=== PATIENT | male | born 2000 | race Caucasian/White ===

== ENCOUNTER → 2025-02-14 | Outpatient (CLI) | payer OTHER, SELFPAY ==
--- OUTSIDE RECORDS SUMMARY | 2025-02-14 16:34 | XMS RPT_ITS | CCD ---
Author Organization [facility] InformFormerly [facility] Care Team Providers Care Fire Sprinkler Apparatus Inspector Name Role Phone SHALA GOETZ Unavailable Unavailable PROVIDER, UNKNOWN Unavailable Unavailable Landon Khoury Unavailable Unavailable IDALMIS GALLEGO Unavailable Unavailable PHYSICIAN, NONE Unavailable Unavailable Landon Khoury Primary Care Provider Landon Gaston MD Primary Care Provider [phone] LANDON KHOURY Primary Care Unavailable CLUTTER, BONI Attending Unavailable Medications Current Medications Medication Drug Class(es) Dates Sig (Normalized) Sig (Original) [id number] 200 actuat albuterol 0.09 mg/actuat metered dose inhaler (1 source) beta2-Adrenergic Agonist Start: 07-23-2024 End: 08-22-2024 take 2 puff(s) by inhalation every four hours as needed for wheezing albuterol HFA (PROVENTIL HFA, VENTOLIN HFA) 90 mcg/actuation inhaler Indications: Bronchopneumonia Inhale 2 puffs as instructed every 4 hours as needed for wheezing/shortness of breath. 1 each 07/23/2024 08/22/2024 Active benzonatate 100 mg oral capsule (1 source) Non-narcotic Antitussive Start: 07-23-2024 End: 07-30-2024 take 1 capsule by mouth three times daily as needed for cough benzonatate (TESSALON PERLE) 100 mg capsule Indications: Bronchopneumonia Take 1 capsule by mouth three times a day as needed for cough for up to 7 days. 21 capsule 07/23/2024 07/30/2024 Active doxycycline hyclate 100 mg oral tablet (1 source) Tetracycline-clas s Drug Start: 07-23-2024 End: 08-02-2024 take 1 tablet by mouth twice daily doxycycline (VIBRA-TABS) 100 mg tablet Indications: Bronchopneumonia Take 1 tablet by mouth two times a day for 10 days. 20 tablet 07/23/2024 08/02/2024 Active Inhalational Spacing Device (1 source) Start: 07-23-2024 End: 07-23-2024 Inhalational Spacing Device Indications: Bronchopneumonia 1 device one time only for 1 dose. 1 each 07/23/2024 07/23/2024 Active predniSONE 20 mg oral tablet (1 source) Start: 07-23-2024 End: 07-28-2024 take 1 tablet by mouth twice daily predniSONE (DELTASONE) 20 mg tablet Indications: Bronchopneumonia Take 1 tablet by mouth two times a day for 5 days. 10 tablet 07/23/2024 07/28/2024 Active Problems Active Problems Problem Classification Problem Date Documented Da te Episodic/Chronic Pneumonia (except that caused by tuberculosis or sexually transmitted disease) (2 sources) Bronchopneumonia; Translations: [Bronchopneumonia, unspecified organism] Onset: 07-23-2024 07-23-2024 Episodic Past or Other Problems Problem Classification Problem Date Documented Da te Episodic/Chronic Other connective tissue disease (2 sources) Pain in right toe(s); Translations: [Pain in right toe(s)] Onset: 12-05-2016 Episodic Results Test Name Value Interpretation Reference Range Facil dayanna WHITEon 07-23-2024 CNOV Office Visit (WSTR ) ANMOL PYLE ([id number]) 1 M Date Time Provider Department 07/23/24 4:30 PM BONI PLEITEZ [facility] During your visit today, we recorded the following information about you: Temperature Pulse Respiration Blood pressure 99 degrees 102/minute 18/minute 126/68 Weight 129.3 kg Boni Pleitez PA-C 07/23/2024 4:24 PM Signed This note was created using NoteWriter. Subjective Anmol Pyle is a 23 year old male. Patient is a 23-year-old male who complains of worsening fever, wheezing and productive cough that he has been experiencing for the past 4 days. Patient denies congestion, sinus pressure, ear pain or sore throat. Patient has a childhood history of asthma but states he has not experienced any episodes of wheezing in approximately 15 years. Patient does not have a current albuterol MDI. Patient does not smoke. Review of Systems Constitutional: Positive for fever. Respiratory: Positive for cough, shortness of breath and wheezing. All other systems reviewed and are negative. Objective BP 126/68 Pulse 102 Temp 37.2 ?C (99 ?F) Resp 18 Wt 129.3 kg (285 lb 0.9 oz) SpO2 97% Physical Exam Vitals and nursing note reviewed. Constitutional: Appearance: Normal appearance. He is normal weight. HENT: Head: Normocephalic and atraumatic. Right Ear: Tympanic membrane, ear canal and external ear normal. Left Ear: Tympanic membrane, ear canal and external ear normal. Nose: Nose normal. Mouth/Throat: Mouth: Mucous membranes are moist. Pharynx: Oropharynx is clear. Eyes: Extraocular Movements: Extraocular movements intact. Conjunctiva/sclera: Conjunctivae normal. Pupils: Pupils are equal, round, and reactive to light. Cardiovascular: Rate and Rhythm: Normal rate and regular rhythm. Pulses: Normal pulses. Heart sounds: Normal heart sounds. Pulmonary: Effort: Pulmonary effort is normal. Breath sounds: Wheezing and rhonchi present. Musculoskeletal: Cervical back: Normal range of motion and neck supple. Skin: General: Skin is warm and dry. Capillary Refill: Capillary refill takes less than 2 seconds. Neurological: General: No focal deficit present. Mental Status: He is alert and oriented to person, place, and time. Psychiatric: Mood and Affect: Mood normal. Behavior: Behavior normal. Thought Content: Thought content normal. Judgment: Judgment normal. Assessment and Plan Physical exam findings as noted above. Patient was provided with prescriptions for doxycycline 100 mg, prednisone 20 mg, Tessalon 100 mg and an albuterol MDI. Patient was very clearly instructed to report to an emergency department if he notes any acute worsening of his symptoms. Additional supportive care was discussed and the patient verbalizes excellent understanding of same. CLINICAL IMPRESSION: Bronchopneumonia ASSESSMENT/PLAN: 1. Bronchopneumonia - ICD9: 485, ICD10: J18.0 - DOXYCYCLINE HYCLATE 100 MG TABLET - PREDNISONE 20 MG TABLET - BENZONATATE 100 MG CAPSULE - ALBUTEROL SULFATE HFA 90 MCG/ACTUATION AEROSOL INHALER - INHALATIONAL SPACING DEVICE MDM Risk of Complications, Morbidity, and/or Mortality Presenting problems: low Diagnostic procedures: low Management options: cyndi Pleitez PA-C Allergies As of Date: 07/23/2024 (No Known Allergies) Date Reviewed: 07/23/2024 Reviewed by: Poonam Hubbard MA - Fully Assessed Reason for Visit: Chest Congestion [236] Cmt: cough, sob, fever x 4 days Primary Visit Diagnosis:Bronchopneum onia [J18.0] Order(s):doxycycline (VIBRA-TABS) 100 mg tabletTake 1 tablet by mouth two times a day for 10 days.Disp: 20 tabletRfl: 0 predniSONE (DELTASONE) 20 mg tabletTake 1 tablet by mouth two times a day for 5 days.Disp: 10 tabletRfl: 0 benzonatate (TESSALON PERLE) 100 mg capsuleTake 1 capsule by mouth three times a day as needed for cough for up to 7 days.Disp: 21 capsuleRfl: 0 albuterol HFA (PROVENTIL HFA, VENTOLIN HFA) 90 mcg/actuation inhalerInhale 2 puffs as instructed every 4 hours as needed for wheezing/shortness of breath.Disp: 1 eachRfl: 0 Inhalational Spacing Device1 device one time only for 1 dose.Disp: 1 eachRfl: 0 Prescriptions as of 07/23/2024 - doxycycline (VIBRA-TABS) 100 mg tablet Take 1 tablet by mouth two times a day for 10 days. - predniSONE (DELTASONE) 20 mg tablet Take 1 tablet by mouth two times a day for 5 days. - benzonatate (TESSALON PERLE) 100 mg capsule Take 1 capsule by mouth three times a day as needed for cough for up to 7 days. - albuterol HFA (PROVENTIL HFA, VENTOLIN HFA) 90 mcg/actuation inhaler Inhale 2 puffs as instructed every 4 hours as needed for wheezing/shortness of breath. - Inhalational Spacing Device 1 device one time only for 1 dose. Problem List As Of Date: 07/23/2024 (None) Prescriptions ordered this encounter Disp Refills Start End DOXYCYCLIN (more content not included)... Normal [facility] CR Foot Complete 3+ Views Mar barrow 06-04-2020 CR Foot Complete 3+ Views Right [facility]: [id number] ACCESSION EXAM DATE/TIME PROCEDURE ORDERING PROVIDER [id number] 06/04/2020 14:06 EDT CR Foot Complete 3+ DUONG, TARA Views Right CPT code 61527 Reason For Exam (CR Foot Complete 3+ Views Right) injury Report Right foot Clinical indication: Injury with pain fifth metatarsal area, bruising and swelling Comparison: 12/05/2016 AP, oblique and lateral views were obtained. No fracture or dislocation is noted. Joint spaces appear intact. IMPRESSION: No acute osseous abnormality is noted. Report Dictated on Final Dictating Physician: MD DE DIOS DIANE Signed Date and Time: 06/04/2020 2:15 pm Signed by: MD DE DIOS DIANE Transcribed Date and Time: 06/04/2020 2:16 Normal [facility] XR FOOT RIGHT (MIN 3 VIEWS)o n 06-04-2020 [id number]iology ACCESSION EXAM DATE/TIME PROCEDURE ORDERING PROVIDER [id number] 06/04/2020 14:06 EDT CR Foot Complete 3+ DUONG, TARA Views Right CPT code 41985 Reason For Exam (CR Foot Complete 3+ Views Right) injury Report Right foot Clinical indication: Injury with pain fifth metatarsal area, bruising and swelling Comparison: 12/05/2016 AP, oblique and lateral views were obtained. No fracture or dislocation is noted. Joint spaces appear intact. IMPRESSION: No acute osseous abnormality is noted. Report Dictated on --- Final --- Dictating Physician: MD DE DIOS DIANE Signed Date and Time: 06/04/2020 2:15 pm Signed by: MD DE DIOS DIANE Transcribed Date and Time: 06/04/2020 2:16 [facility] Work Phone: [place], [facility] Incoming Radiology Results From [facility] - 06/04/2020 2:17 PM EDT Patient Name: ANMOL PYLE [facility]#: [id number] Diagnostic Radiology ACCESSION EXAM DATE/TIME PROCEDURE ORDERING PROVIDER [id number] 06/04/2020 14:06 EDT CR Foot Complete 3+ DUONG, TARA Views Right CPT code 35947 Reason For Exam (CR Foot Complete 3+ Views Right) injury Report Right foot Clinical indication: Injury with pain fifth metatarsal area, bruising and swelling Comparison: 12/05/2016 AP, oblique and lateral views were obtained. No fracture or dislocation is noted. Joint spaces appear intact. IMPRESSION: No acute osseous abnormality is noted. Report Dictated on --- Final --- Dictating Physician: MD DE DIOS DIANE Signed Date and Time: 06/04/2020 2:15 pm Signed by: MD DE DIOS DIANE Transcribed Date and Time: 06/04/2020 2:16 [facility] Work Phone: CR Foot Complete 3+ Views [facility] 12-05-2016 CR Foot Complete 3+ Views Right Patient Name: ANMOL PYLE Diagnostic Radiology Exam Date/Time 12/05/2016 16:47:00 EDT Exam CR Foot Complete 3+ Views Right Ordering Physician ALBERT GOETZ ANDREA Accession Number [id number] CPT4 Codes 05715 () Reason For Exam Pain right toe(s) M79.674 Report Three views of the right foot, December 05, 2016. Reason for examination: Right foot pain. Injury. Pain primarily in the region of the first digit. COMPARISON: None available. FINDINGS: No fracture or dislocation is identified. Bony alignment and joint spaces are within normal limits. No destructive or erosive osseous process is noted. Bone mineralization is normal. IMPRESSION: No acute osseous abnormality. Report Dictated on Final Dictated: 12/05/2016 4:53 pm Dictating Physician: MD HENDRICKS JOE M Signed Date and Time: 12/05/2016 4:55 pm Signed by: MD ELADIO, MARY Wiley Transcribed Date and Time: 12/05/2016 4:53 Normal [facility] Emergency Room Note on 11-27-2016 [place] [facility] Note Normal [facility] [place] Patient Summary Documentson 11-27-2016 Patient Summary Documents Normal [facility] XR ANKLE MINIMUM 3 VIEWS RIG HTon 11-27-2016 XR ANKLE MINIMUM 3 VIEWS RIGHT ORIGINALXR ANKLE MINIMUM 3 VIEWS RIGHT CLINICAL STATEMENT: pain COMPARISON: None FINDINGS: No acute fracture or dislocation is identified. The ankle mortise and talar dome are normal. The joint spaces are maintained. There is no radiopaque foreign body. IMPRESSION: No acute fracture or dislocation. Interpreted By: Tara Steiner MDPreliminary Report By: Tara Steiner MDElectronically Signed By: Tara Steiner MD Dictated Date: 11/27/2016 8:42:48 AM Prelim Date: 11/27/2016 8:42:48 AM Sign Date: 11/27/2016 8:43:37 AM Normal [facility] [place] XR FOOT MINIMUM 3 VIEWS RIG Ton 11-27-2016 XR FOOT MINIMUM 3 VIEWS RIGHT ORIGINALXR FOOT MINIMUM 3 VIEWS RIGHT CLINICAL STATEMENT: pain COMPARISON: None FINDINGS: No acute fracture or dislocation is identified. The joint spaces are maintained. There is no radiopaque foreign body. IMPRESSION: No acute fracture or dislocation. Interpreted By: Tara Steinerreliminary Report By: Tara Steiner MDElectronically Signed By: Tara Steiner MD Dictated Date: 11/27/2016 8:41:49 AM Prelim Date: 11/27/2016 8:41:49 AM Sign Date: 11/27/2016 8:42:38 AM Normal [facility] [place] Vital Signs Date Time Vital Sign Value Performing Clinician Jeramy cr 07-23-2024 16:12-0400 Body temperature 99 [degF] Boni NGUYEN-Alison Work Phone: [facility] 07-23-2024 16:12-0400 Body weight 129.3 kg Boni Pleitez PA-Alison Work Phone: [facility] 07-23-2024 16:12-0400 Diastolic blood pressure 68 mm[Hg] Boni Clutter PA-C Work Phone: [facility] 07-23-2024 16:12-0400 Heart rate 102 /min Boni Clutter PA-C Work Phone: [facility] 07-23-2024 16:12-0400 Respiratory rate 18 /min Boni Clutter PA-C Work Phone: [facility] 07-23-2024 16:12-0400 SaO2% (BldA) [Mass fraction] 97 % Boni Clutter PA-C Work Phone: [facility] 07-23-2024 16:12-0400 Systolic blood pressure 126 mm[Hg] Boni Clutter PA-C Work Phone: [facility] Encounters Encounter Date Encounter Type Care Provider Facility Start: 07-23-2024 End: 07-23-2024 Office outpatient new 30 minutes Boni Clutter PA-C Work Phone: [facility] Comment on above: Bronchopneumonia (Pr imary Dx) Start: 07-23-2024 End: 07-23-2024 ambulatory LANDON KHOURY Facility:[facility] Start: 06-04-2020 End: 06-04-2020 Subsequent hospital visit by physician Tara Rinaldi Work Phone: [facility] Start: 12-05-2016 Ambulatory [facility] Start: 11-27-2016 End: 11-27-2016 Emergency department patient visit IDALMIS GALLEGO Facility:B Procedures Date Procedure Procedure Detail Performing Clinician Start: 06-04-2020 Radex foot complete minimum 3 views Tara Rinaldi Work Phone: Plan of Treatment Date Care Activity Detail Author Start: 05-17-2033 Urine microalbumin profile DTaP,Tdap,Td Vaccine (8 - Td or Tdap) [facility] Start: 11-18-2024 Influenza vaccination Influenza Vaccine (Season Ended) [facility] Start: 11-19-2023 Covid-19 Vaccine ( season) Covid-19 Vaccine ( season) [facility] Start: 11-19-2019 Influenza vaccination Flu vaccine (#1) [facility] Work Phone: Start: 2018 Anxiety Screening Anxiety Screening [facility] Start: 2018 Depression Screening Depression Screening [facility] Start: 2018 Hepatitis C screening Hepatitis C Screening [facility] Start: 2018 HIV screening HIV Screening [facility] Start: 2016 Meningococcal B Vaccine (1 of 2 - Standard) Meningococcal B Vaccine (1 of 2 - Standard) [facility] Start: 2014 Peds To Adult Transition Annual Assessment Peds To Adult Transition Annual Assessment [facility] Start: 2012 Peds To Adult Transition Initial Discussion Peds To Adult Transition Initial Discussion [facility] Immunizations Immunization Date Immunization Notes Care Provider Fa hugo 01-13-2011 influenza virus vacc ine, unspecified formulation Boni Pleitez PA-C Work Phone: [facility] Payers Date Payer Category Payer Private Health Insurance [employer] PPO [id number] 2022 Unknown [id number] 2016 Unknown [id number] Unknown Social History Date Type Detail Facility Tobacco smoking status NHIS Unknown if ever smoked [facility] Work Phone: Start: 2000 Sex Assigned At Not on file [facility] Work Phone: Tobacco smoking status COIS Tobacco smoking consumption unknown [facility] Gender identity Not on file [facility] inic Progress note 07-23-2024 Note Date & Type Note Facility 07-23-2024 Note HNO ID: [id number] Author: BONI PLEITEZ PA-C Service: ? Author Type: Physician Rn Orthopaedic Type: Progress Notes Filed: 07/23/2024 16:24 Note Text: This note was created using Amulet Pharm[employer]. Subjective Anmol Pyle is a 23 year old male. Patient is a 23-year-old male who complains of worsening fever, wheezing and productive cough that he has been experiencing for the past 4 days. Patient denies congestion, sinus pressure, ear pain or sore throat. Patient has a childhood history of asthma but states he has not experienced any episodes of wheezing in approximately 15 years. Patient does not have a current albuterol MDI. Patient does not smoke. Review of Systems Constitutional: Positive for fever. Respiratory: Positive for cough, shortness of breath and wheezing. All other systems reviewed and are negative. Objective BP 126/68 Pulse 102 Temp 37.2 ?C (99 ?F) Resp 18 Wt 129.3 kg (285 lb 0.9 oz) SpO2 97% Physical Exam Vitals and nursing note reviewed. Constitutional: Appearance: Normal appearance. He is normal weight. HENT: Head: Normocephalic and atraumatic. Right Ear: Tympanic membrane, ear canal and external ear normal. Left Ear: Tympanic membrane, ear canal and external ear normal. Nose: Nose normal. Mouth/Throat: Mouth: Mucous membranes are moist. Pharynx: Oropharynx is clear. Eyes: Extraocular Movements: Extraocular movements intact. Conjunctiva/sclera: Conjunctivae normal. Pupils: Pupils are equal, round, and reactive to light. Cardiovascular: Rate and Rhythm: Normal rate and regular rhythm. Pulses: Normal pulses. Heart sounds: Normal heart sounds. Pulmonary: Effort: Pulmonary effort is normal. Breath sounds: Wheezing and rhonchi present. Musculoskeletal: Cervical back: Normal range of motion and neck supple. Skin: General: Skin is warm and dry. Capillary Refill: Capillary refill takes less than 2 seconds. Neurological: General: No focal deficit present. Mental Status: He is alert and oriented to person, place, and time. Psychiatric: Mood and Affect: Mood normal. Behavior: Behavior normal. Thought Content: Thought content normal. Judgment: Judgment normal. Assessment and Plan Physical exam findings as noted above. Patient was provided with prescriptions for doxycycline 100 mg, prednisone 20 mg, Tessalon 100 mg and an albuterol MDI. Patient was very clearly instructed to report to an emergency department if he notes any acute worsening of his symptoms. Additional supportive care was discussed and the patient verbalizes excellent understanding of same. CLINICAL IMPRESSION: Bronchopneumonia ASSESSMENT/PLAN: 1. Bronchopneumonia - ICD9: 485, ICD10: J18.0 - DOXYCYCLINE HYCLATE 100 MG TABLET - PREDNISONE 20 MG TABLET - BENZONATATE 100 MG CAPSULE - ALBUTEROL SULFATE HFA 90 MCG/ACTUATION AEROSOL INHALER - INHALATIONAL SPACING DEVICE MDM Risk of Complications, Morbidity, and/or Mortality Presenting problems: low Diagnostic procedures: low Management options: low Boni Pleitez PA-C [facility] History of Present illness Narrative 07-23-2024 Boni Pleitez PA-C - 07/23/2024 4:21 PM EDT Note Date & Type Note Facility 07-23-2024 History of Presen t illness Narrative This note was created using Carest[employer]. Subjective Anmol Pyle is a 23 year old male. Patient is a 23-year-old male who complains of worsening fever, wheezing and productive cough that he has been experiencing for the past 4 days. Patient denies congestion, sinus pressure, ear pain or sore throat. Patient has a childhood history of asthma but states he has not experienced any episodes of wheezing in approximately 15 years. Patient does not have a current albuterol MDI. Patient does not smoke. Review of Systems Constitutional: Positive for fever. Respiratory: Positive for cough, shortness of breath and wheezing. All other systems reviewed and are negative. Objective BP 126/68 Pulse 102 Temp 37.2 C (99 F) Resp 18 Wt 129.3 kg (285 lb 0.9 oz) SpO2 97% Physical Exam Vitals and nursing note reviewed. Constitutional: Appearance: Normal appearance. He is normal weight. HENT: Head: Normocephalic and atraumatic. Right Ear: Tympanic membrane, ear canal and external ear normal. Left Ear: Tympanic membrane, ear canal and external ear normal. Nose: Nose normal. Mouth/Throat: Mouth: Mucous membranes are moist. Pharynx: Oropharynx is clear. Eyes: Extraocular Movements: Extraocular movements intact. Conjunctiva/sclera: Conjunctivae normal. Pupils: Pupils are equal, round, and reactive to light. Cardiovascular: Rate and Rhythm: Normal rate and regular rhythm. Pulses: Normal pulses. Heart sounds: Normal heart sounds. Pulmonary: Effort: Pulmonary effort is normal. Breath sounds: Wheezing and rhonchi present. Musculoskeletal: Cervical back: Normal range of motion and neck supple. Skin: General: Skin is warm and dry. Capillary Refill: Capillary refill takes less than 2 seconds. Neurological: General: No focal deficit present. Mental Status: He is alert and oriented to person, place, and time. Psychiatric: Mood and Affect: Mood normal. Behavior: Behavior normal. Thought Content: Thought content normal. Judgment: Judgment normal. Assessment and Plan Physical exam findings as noted above. Patient was provided with prescriptions for doxycycline 100 mg, prednisone 20 mg, Tessalon 100 mg and an albuterol MDI. Patient was very clearly instructed to report to an emergency department if he notes any acute worsening of his symptoms. Additional supportive care was discussed and the patient verbalizes excellent understanding of same. CLINICAL IMPRESSION: Bronchopneumonia ASSESSMENT/PLAN: 1. Bronchopneumonia - ICD9: 485, ICD10: J18.0 - DOXYCYCLINE HYCLATE 100 MG TABLET - PREDNISONE 20 MG TABLET - BENZONATATE 100 MG CAPSULE - ALBUTEROL SULFATE HFA 90 MCG/ACTUATION AEROSOL INHALER - INHALATIONAL SPACING DEVICE MDM Risk of Complications, Morbidity, and/or Mortality Presenting problems: low Diagnostic procedures: low Management options: low Boni Pleitez PA-C documented in this encounter [facility] Evaluation note Note Date & Type Note Facility Evaluation note Diagnosis Bronchopneumonia- Primary Bronchopneumonia, organism unspecified documented in this encounter [facility] Summary Purpose Family History No Family History Records FoundNo Family History Records FoundNo Family History Records FoundNo Family History Records Found Advance Directives No Advanced Directives Records FoundNo Advanced Directives Records FoundNo Advanced Directives Records FoundNo Advanced Directives Records Found Additional Source Comments (unrecognized sect ion and content) No Status Records FoundNo Status Records FoundNo Status Records FoundNo Status Records Found INFORMATION SOURCE (unrecogn ized section and content) DATE CREATED AUTHOR 09/13/2017 [facility] DATE CREATED AUTHOR AUTHOR'S ORGANIZ ATION 09/13/2017 [facility] ([place] DATE CREATED AUTHOR AUTHOR'S ORGANIZ ATION 06/10/2020 [facility] DATE CREATED AUTHOR AUTHOR'S REJI ATION 07/26/2024 [facility] Source Comments (unrecognize d section and content) In the event this informatio n is protected by the Federal Confidentiality of Alcohol and Drug Abuse Patient Records regulations: The Federal rules restrict any use of the information to criminally investigate or prosecute any alcohol or drug abuse patient.[facility] Reason for Visit (unrecogniz ed section and content) Reason Comments Chest Congestion cough, sob, fever x 4 days Care Teams (unrecognized sec tion and content) Fire Sprinkler Apparatus Inspector Relationship Specialty Start Date End Date Landon Khoury MD [address] [place] [id number] PCP - General Family Medicine 07/23/24 FOR RECORDS PERTAINING TO PATIENTS WHO ARE OR HAVE BEEN ENROLLED IN A CHEMICAL DEPENDENCY/SUBSTANCEABUSE PROGRAM, SOME INFORMATION MAY BE OMITTED. This clinical summary was aggregated from multiple sources. Caution should be exercised in using it in the provision of clinical care. This summary normalizes information from multiple sources, and as a consequence, information in this document may materially change the coding, format and clinical context of patient data. In addition, data may be omitted in some cases. CLINICAL DECISIONS SHOULD BE BASED ON THE PRIMARY CLINICAL RECORDS. [employer] provides no warranty or guarantee of the accuracy or completeness of information in this document.
--- NOTE | 2025-02-14 16:35 | CT_ITS ---
PROCEDURE: SINUS/FACIAL BONE 02/14/2025 REASON FOR EXAM: CHRONIC SINUSITIS, POLYP OF NASAL CAVITY TECHNIQUE: Procedure Code: CTSI Modality: CT Procedure: SINUS/FACIAL BONE Coronal and Sagittal reconstruction series were provided. One or more dose reduction techniques were used (e.g., Automated exposure control, adjustment of the mA and/or kV according to patient size, use of iterative reconstruction technique). RADIATION DOSE SUMMARY: DLP: 875.17 mGycm COMPARISON: None available. FINDINGS: The frontal sinuses are well developed. Scattered mucosal thickening of the inferior most aspect of the left frontal sinus. There is mucosal thickening along the left frontal sinus outflow tract. The right frontal sinus outflow tract is patent. The ethmoidal air cells are well developed. There is mucosal thickening ethmoid air cells. The lamina papyracea appear intact. The sphenoid sinuses are well developed. Polypoid mucosal thickening in the left maxillary sinus. Mucosal thickening in the anterior right sphenoid sinus. Complete opacification of the sphenoethmoidal recesses. The maxillary sinuses are symmetrically and well developed. Polypoid mucosal thickening in the bilateral maxillary sinuses, [id number]. There is opacification of the left ostiomeatal unit. The right ostiomeatal unit appears patent with scattered mucosal thickening. Polypoid mucosal thickening in the left nasal cavity measuring 2.9 x 0.7 cm with localized effacement of the left nasal cavity. Suggestion of polypoid mucosal thickening in the right nasal cavity measuring up to 1.1 cm. The olfactory fossa are symmetrical in depth bilaterally (Keros type 2). Rightward nasal septal deviation. The anterior cranial fossa appears within normal limits of morphology. The bony orbits appear intact. The orbital contents appear within normal limits. The mastoid air cells and middle ear cavities are overall well aerated. CT/Sinus/Facial Bone IMPRESSION: Polypoid mucosal thickening in the nasal cavity and paranasal sinuses compatibl e with sinonasal polyposis. Compromise of the bilateral sphenoethmoidal recesses and left ostiomeatal unit. Reading Location: [facility]
== END | disposition home or self-care (01) ==
LOC: CT 16:31
PROVIDERS: PCP Family Medicine; Referring Provider Otolaryngology; Visit Provider Otolaryngology
DX: J32.9 Chronic sinusitis, unspecified (principal); J33.0 Polyp of nasal cavity
CPT/HCPCS: 70486